=== PATIENT | female | born 1945 | race Caucasian/White ===

== ENCOUNTER 2017-09-01 06:21 | Day surgery (SDC) | payer MEDICARE ==
[2017-09-01] MEDS ORDERED: LACTATED RINGERS 1,000 ML ONE (06:37)
[2017-09-01] MEDS ORDERED: PROPOFOL 200 MG/20 ML VIAL IV ONE (07:00)
[2017-09-01 07:17] VITALS: BP 158/88; TEMP 97.4; O2SAT 97
--- NOTE | 2017-09-01 09:18 | OP ---
DATE OF PROCEDURE: 09/01/17 PREOPERATIVE DIAGNOSIS: 1. Colon cancer screen. 2. Personal history of adenomatous colonic polyp in 2011. POSTOPERATIVE DIAGNOSIS: 1. Diverticulosis of the sigmoid colon. PROCEDURE: 1. Colonoscopy. SURGEON: Karthik Jones MD. ANESTHESIA: MAC by Coleman Mendez CRNA. ESTIMATED BLOOD LOSS: None. COMPLICATIONS: None apparent. TECHNIQUE: After informed consent was obtained from the patient, the patient was taken to the Endoscopy Suite and put in the left lateral decubitus position. After adequate IV sedation was obtained, a digital rectal exam was performed which revealed decreased sphincter tone, but no intraluminal masses. The colonoscope was then passed with good visualization all the way through the colon. The bowel prep was excellent. The cecum was identified by the presence of ileocecal valve and usual landmarks. The scope was then withdrawn slowly over the next 8 minutes and a good look at the entire colonic wall was obtained. The patient had pretty extensive diverticular disease in the sigmoid region. There was no evidence of recent bleeding, no polyps or masses were found. The scope was removed. The patient tolerated the procedure well. The patient was transported to the outpatient area in good condition. It is recommended she be on a high-fiber diet. Repeat colonoscopy in 8 to 10 years is recommended. #[id number] [facility]
== END 2017-09-01 08:54 | disposition home or self-care (01) ==
LOC: AMB 06:21
PROVIDERS: ATTEND Family Medicine
DX: Z12.11 Encounter for screening for malignant neoplasm of colon (principal); K57.30 Diverticulosis of large intestine without perforation or abscess without bleeding; Z86.010 Personal history of colon polyps; K21.9 Gastro-esophageal reflux disease without esophagitis
CPT/HCPCS: 00810; G0105; J3490; J7120

== ENCOUNTER → 2018-01-24 | Outpatient (CLI) | payer MEDICARE ==
--- NOTE | 2018-01-26 09:36 | MAM ---
EXAM DESCRIPTION: 3D Screening BILATERAL : Digital Mammography. CLINICAL HISTORY: 72 years Female ANNUAL SCREENING . No complaints. Mother and sister with breast cancer. Postmenopausal. No HRT. Prior left cyst aspiration.. COMPARISON: 2-D digital diagnostic bilateral study on 09/02/2016 and 03/09/2016. Report from prior examination also reviewed. TECHNIQUE: Bilateral CC and MLO projection full-field images, 3-D tomosynthesis digital mammographic technique. Also bilateral synthesized CC/ MLO full-field images. CAD not utilized. FINDINGS: The breast parenchymal density pattern is: Scattered areas of fibroglandular density. No skin thickening or nipple retraction . Focal asymmetry in the anterior third of the right breast at the 530 clock position approximately 5 cm from the nipple. Increased density compared to the surrounding tissues and increased density compared to the prior studies. Bilateral vascular calcifications. Bilateral axillary lymph nodes. Bilateral solitary microcalcifications. No focal, stellate mass or density, focal asymmetry , and no suspicious microcalcifications left breast. IMPRESSION: BI-RADS CATEGORY: 0 - INCOMPLETE- Need additional imaging evaluation. FOLLOW-UP: Recall for additional imaging: Bilateral 3-D tomosynthesis full field LM images. 2-D spot magnification LM image of the lower inner quadrant of the anterior right breast. Targeted right breast ultrasound. Written communication concerning the IMPRESSION and Follow-up, will be mailed to the patient and referring health care provider. Electronically signed by: Jose Rodriguez MD 01/26/2018 9:34 AM CDT
== END ==
LOC: MAMMO 10:30
PROVIDERS: ATTEND Family Medicine
DX: Z12.31 Encounter for screening mammogram for malignant neoplasm of breast (principal)

== ENCOUNTER → 2018-02-01 | Outpatient (CLI) | payer MEDICARE ==
--- NOTE | 2018-02-01 16:01 | US ---
EXAM DESCRIPTION: Breast,Right: Ultrasound CLINICAL HISTORY: 72 yearsFemaleABNORMAL MAMMO. Focal asymmetry inferior aspect of the anterior right breast. COMPARISON: Digital 3-D tomosynthesis and 2-D diagnostic mammography bilateral breast on this visit. TECHNIQUE: Transcutaneous scanning of the anterior right breast utilizing two-dimensional and Doppler modes. Scanning performed by the brick wheeler and Dr. Rodriguez. FINDINGS: Scanning at the 600 clock position, 2 cm from the nipple. Irregular hypoechoic mass with microlobulated and spiculated margins and nonparallel orientation. Posterior shadowing features. Nonvascular on Doppler. Dimensions are approximately 5.6 x 5.4 mm. No definite calcifications. No distinct cyst or parenchymal edema. No skin changes. IMPRESSION: BIRADS CATEGORY: 5 HIGHLY SUSPICIOUS FINDINGS. HIGHLY SUGGESTIVE OF MALIGNANCY. Please refer to bilateral 3-D tomosynthesis and 2-D diagnostic mammographic examination and report on this visit. The FINDINGS and the FOLLOW-UP plan were reviewed in person with the patient after the examination. Written communication explaining the IMPRESSION and FOLLOW-UP will be mailed to the patient and referring care provider. CRITICAL COMMUNICATION: The critical value was discussed directly by phone with Dr. Karthik Jones at approximately 1530 hours, on February 01, 2018. Electronically signed by: Jose Rodriguez MD 02/01/2018 3:59 PM CDT
--- NOTE | 2018-02-01 16:04 | MAM ---
EXAM DESCRIPTION: 3D Diagnostic, Bilateral: Digital Mammography CLINICAL HISTORY: 72 yearsFemaleABNORMAL MAMMO . Focal asymmetry versus mass density extending clock position anterior right breast.. COMPARISON: 3-D digital screening bilateral study 01/24/2018. Targeted right breast ultrasound following this examination Report from prior examination also reviewed. . TECHNIQUE: Bilateral LM projection full-field images, 3-D tomosynthesis digital mammographic technique. Also bilateral synthesized LM full-field images. 2-D digital spot magnification images of the anterior right breast CC and LM projections. CAD on 2-D imaging. FINDINGS: The breast parenchymal density pattern is: Scattered areas of fibroglandular density. No skin thickening or nipple retraction at the 600 clock position of the anterior right breast, 3 cm from the nipple, is a irregular mass with indistinct and spiculated margins high density compared to the adjacent breast tissue. No calcifications. Dimensions are approximately 10 x 9.5 mm involving 0.77 sq cm. Ultrasound: Scanning at the 600 clock position, 2 cm from the nipple. Irregular hypoechoic mass with microlobulated and spiculated margins and nonparallel orientation. Posterior shadowing features. Nonvascular on Doppler. Dimensions are approximately 5.6 x 5.4 mm. No definite calcifications. No distinct cyst or parenchymal edema. No skin changes. IMPRESSION: BI-RADS CATEGORY: 5 HIGHLY SUSPICIOUS FINDINGS. HIGHLY SUGGESTIVE OF MALIGNANCY. Recommendation: Surgical consultation. The FINDINGS and the FOLLOW-UP plan were reviewed in person with the patient after the examination. Written communication explaining the IMPRESSION and FOLLOW-UP will be mailed to the patient and referring care provider. CRITICAL COMMUNICATION: The critical value was discussed directly by phone with Dr. Karthik Jones at approximately 1530 hours, on February 01, 2018. Electronically signed by: Jose Rodriguez MD 02/01/2018 4:01 PM CDT
== END ==
LOC: MAMMO 14:00
PROVIDERS: ATTEND Family Medicine
DX: R92.8 Other abnormal and inconclusive findings on diagnostic imaging of breast (principal)
CPT/HCPCS: 76641; 77066; G0279

== ENCOUNTER → 2018-02-07 | Outpatient (CLI) | payer MEDICARE ==
--- NOTE | 2018-02-07 09:52 | US ---
EXAM DESCRIPTION: Biopsy/Needle Guidance CLINICAL HISTORY: 72 years Female RT BREAST MASS COMPARISON: Diagnostic ultrasound of the right breast on 02/01/2018 TECHNIQUE: The procedure was performed by Dr. Vogt. Repeat ultrasound localized hypoechoic solid nodule or mass at the 600 position of the right breast 2 Cm from the nipple.. Sterile preparation. Sterile ultrasound guidance during needle passes. FINDINGS: Irregular hypoechoic mass with microlobulated and spiculated margins and nonparallel orientation. Approximately 6 x 5 mm. Posterior shadowing features. Nonvascular on Doppler, on scans before the procedure. Scans during procedure show linear echogenic needle within the mass. IMPRESSION: Successful, ultrasound-guided needle core biopsy of right breast mass. Adequate core samples were obtained. Pathology examination at remote facility, results pending. Recommendation: If pathology results are negative, consider follow-up digital diagnostic right breast mammography and ultrasound in 6 month interval. Electronically signed by: Jose Rodriguez MD 02/07/2018 9:51 AM CDT
--- NOTE | 2018-02-07 10:10 | OP ---
DATE OF PROCEDURE: 02/07/18 PREOPERATIVE DIAGNOSIS: 1. Abnormal right mammogram. POSTOPERATIVE DIAGNOSIS: 1. Abnormal right mammogram. PROCEDURE: 1. Sonographically guided needle core biopsy, right breast. SURGEON: Chele Vogt MD. HAND TACKER: None. ANESTHESIA: Local infiltration of 1% lidocaine. INDICATION: The patient is a 72-year-old female who on routine mammography had a mass noted in the inferior aspect of the right breast. Ultrasound revealed it to be solid and somewhat irregularly shaped. She was brought to the Ultrasound Suite today for sonographically guided needle core biopsy after the risks, benefits and alternatives to the procedure were discussed and accepted. FINDINGS: Five good cores were taken with the ultrasound revealing the needle within the specimen. Pathology is pending. PROCEDURE: The patient brought to the Ultrasound Suite and placed in the supine position. The right breast was examined. The lesion was identified. The breast medial to the ultrasound probe was prepped with Betadine and draped. Local infiltration of anesthesia was obtained with 1% lidocaine. The 25-gauge needle was used to infiltrate local anesthetic between the mass and the skin. When this was done, a stab wound was made with a #15 blade and then multiple cores were taken with ultrasound guidance. Hemostasis was obtained with pressure. A single suture was placed in the stab wound with 4-0 Nylon. When this was done, sterile dressing was applied. The biopsy specimens were sent for pathological evaluation. The patient tolerated the procedure well. Estimated blood loss was less than 5 mL. #[id number] [facility]
== END | disposition home or self-care (01) ==
LOC: US 07:43
PROVIDERS: ATTEND Surgery
DX: N63.13 Unspecified lump in the right breast, lower outer quadrant (principal)

== ENCOUNTER → 2018-02-13 | Outpatient (CLI) | payer MEDICARE ==
--- NOTE | 2018-02-13 18:18 | RAD ---
EXAM DESCRIPTION: Chest,2 Views CLINICAL HISTORY: 72 years Female, BREAST CANCER COMPARISON: 30 July 2015 TECHNIQUE: PA/lateral FINDINGS: There is no cardiac or pulmonary abnormality. The lungs are clear. There is no effusion. No evidence of metastatic neoplasm is detected. IMPRESSION: 1. Normal two-view chest. Electronically signed by: Darnell Carrasco MD 02/13/2018 6:17 PM CDT
== END | disposition home or self-care (01) ==
LOC: LAB.O 15:04
PROVIDERS: ATTEND Surgery
DX: C50.311 Malignant neoplasm of lower-inner quadrant of right female breast (principal)

== ENCOUNTER → 2018-02-16 | Outpatient (CLI) | payer MEDICARE ==
--- NOTE | 2018-02-20 15:23 | NM ---
EXAM DESCRIPTION: Bone Scan, Whole Body CLINICAL HISTORY: 72 years, Female, BREAST CA RADIOPHARMACEUTICAL: 28.8 mCi technetium 99m MDP was administered intravenously. Delayed three-hour images of the skeletal system were obtained. FINDINGS: Anterior and posterior whole body images of the skeletal system were obtained. Frontal view shows mildly increased activity in the region of the nose or ethmoid sinuses which may be inflammatory. Similar mild increase activity in the region of the right maxillary sinus. Mild increased activity at the left sternoclavicular joint is probably degenerative. Mild increased activity in the feet is consistent with degenerative arthritic changes with similar findings in the wrists and hands. There is activity in both kidneys as well as the urinary bladder. Mild curvature of the thoracal lumbar spine is seen. No focal intense abnormal activity in the bones to suggest metastatic disease. IMPRESSION: No identified evidence of osseous metastatic disease. Electronically signed by: Brant Olivo MD 02/20/2018 3:22 PM CDT
== END ==
LOC: NM 10:00
PROVIDERS: ATTEND Surgery
DX: C50.311 Malignant neoplasm of lower-inner quadrant of right female breast (principal)

== ENCOUNTER → 2018-02-20 | Outpatient (CLI) | payer MEDICARE | LOC: LAB.O 16:21 | PROVIDERS: ATTEND Surgery | DX: C50.311 Malignant neoplasm of lower-inner quadrant of right female breast (principal) ==

== ENCOUNTER 2018-04-20 07:00 | Inpatient (IN) | payer MEDICARE ==
--- NOTE | 2018-04-17 13:14 | RAD ---
EXAM DESCRIPTION: Chest,2 Views CLINICAL HISTORY: 73 years Female, PREOP COMPARISON: Radiographs of the chest dated 02/13/2018. TECHNIQUE: PA and lateral radiographs of the chest were obtained. FINDINGS: Trachea is midline.The cardiomediastinal silhouette is normal in size. The pulmonary vasculature is within normal limits.The lungs are clear with no acute consolidation.No evidence of pleural effusions.No evidence of pneumothorax. IMPRESSION: No acute cardiopulmonary process. Electronically signed by: Katina Aviles MD 04/17/2018 1:13 PM CDT
[2018-04-20] MEDS ORDERED: SODIUM CHL 0.9% 100ML MINI-BAG 100 ML IVPB ONE (07:24)
[2018-04-20] MEDS ORDERED: ceFAZolin SODIUM 1 GM VIAL ONE (07:24)
[2018-04-20] MEDS ORDERED: LACTATED RINGERS 1,000 ML ONE (07:24)
[2018-04-20] MEDS ORDERED: MIDAZOLAM INJ 2 MG/2 ML VIAL ONE (08:54)
[2018-04-20] MEDS ORDERED: fentaNYL CITRATE INJ 50 MCG/ML AMP ONE (08:54)
[2018-04-20] MEDS ORDERED: ACETAMINOPHEN IV 1000MG 100 ML ONE (09:14)
[2018-04-20] MEDS ORDERED: DEXAMETHASONE INJ 10 MG/ML VIAL IV ONE (10:00)
[2018-04-20] MEDS ORDERED: METOCLOPRAMIDE HCL INJ 10 MG/2 ML VIAL IV ONE (10:00)
[2018-04-20] MEDS ORDERED: KETOROLAC TROMETHAMINE INJ 30 MG/ML VIAL IV ONE (10:00)
[2018-04-20] MEDS ORDERED: PROPOFOL 200 MG/20 ML VIAL IV ONE (10:00)
[2018-04-20] MEDS ORDERED: raNITIdine HCL INJ 25 MG/ML VIAL IV ONE (10:00)
[2018-04-20] MEDS ORDERED: LIDOCAINE 1% 10 ML VIAL INJ ONE (10:00)
[2018-04-20] MEDS ORDERED: HYDROmorphone HCL INJ 2 MG/ML VIAL ONE (10:17)
--- NOTE | 2018-04-20 10:33 | HP ---
CHIEF COMPLAINT: Biopsy-proven carcinoma of the right breast. HISTORY OF PRESENT ILLNESS: The patient is a 73-year-old female who on routine mammography was found to have a solid mass at the 6 o'clock position in the right breast. She underwent needle core biopsy which revealed an invasive carcinoma. She had a negative metastatic workup and is admitted today for right partial mastectomy after needle localization and axillary lymph node sampling. PAST MEDICAL HISTORY: 1. Gallstones. 2. Urinary tract infections. 3. Diverticulosis. 4. Gastroesophageal reflux disease. PAST SURGICAL HISTORY: 1. Hysterectomy. 2. Cataract surgery. 3. Colonoscopy. CURRENT MEDICATIONS: She takes no prescription medications. She takes multiple vitamins and supplements. ALLERGIES: NO KNOWN DRUG ALLERGIES. FAMILY HISTORY: Positive for both breast and lung cancer. Two sisters have from breast cancer. SOCIAL HISTORY: The patient is . She does not smoke. She uses alcohol moderately. REVIEW OF SYSTEMS: Negative for chest pain, shortness of breath. Negative for change in bowel habits, weight loss, nausea, vomiting. No history of hepatitis or jaundice. She has no current urinary tract symptoms. She does have some chronic low back pain. This is chronic in nature with no acute exacerbations recently. PHYSICAL EXAMINATION: GENERAL: The patient is awake, alert, cooperative, in no acute distress. VITAL SIGNS: The patient is currently afebrile, normotensive. HEENT: Sclerae nonicteric. Mucous membranes moist. NECK: Neck and supraclavicular areas are without adenopathy. BREASTS: The left breast is without discrete mass. The right breast has a needle localization wire in the inferior aspect laterally. There is no discrete mass palpable. There is no axillary adenopathy noted. CHEST: Equal breath sounds bilaterally. HEART: Regular rate and rhythm. ABDOMEN: Soft, nontender without masses. PELVIC/RECTAL: Deferred. EXTREMITIES: Without cyanosis, clubbing or edema. LABORATORY: Preoperative laboratory reveals a clear urine. Creatinine 0.85, potassium 4.2. Liver functions within normal limits. Blood sugar 116. Hemoglobin 14.9, white count 6.7, platelet count 240,000. EKG revealed sinus rhythm. Chest x-ray was clear. ASSESSMENT: 1. Biopsy-proven carcinoma of the right breast. PLAN: She is admitted for right partial mastectomy after needle localization and axillary node sampling. #[id number] [facility]
[2018-04-20] MEDS ORDERED: MORPHINE SULFATE INJ 10 MG/ML VIAL IV PRN (11:43)
[2018-04-20] MEDS ORDERED: HYDROcodone 5MG/APAP 325MG 1 EA TAB PO PRN (11:43)
[2018-04-20] MEDS: ONDANSETRON INJ 4 MG/2 ML VIAL IV PRN ×2 (11:45→12:00)
[2018-04-20] MEDS: LACTATED RINGERS 1,000 ML IVS PRN ×2 (11:53→23:31)
[2018-04-20] MEDS ORDERED: LABETALOL INJ 5 MG/ML VIAL ONE ×2 (12:09→12:12)
[2018-04-20] MEDS ORDERED: PROMETHAZINE HCL INJ 25 MG/ML VIAL ONE (12:44)
[2018-04-20] MEDS ORDERED: SODIUM CHLORIDE 0.9% 100ML 100 ML IVPB ONE (12:44)
--- NOTE | 2018-04-20 13:37 | OP ---
DATE OF PROCEDURE: 04/20/18 PREOPERATIVE DIAGNOSIS: 1. Biopsy-proven carcinoma of the right breast. POSTOPERATIVE DIAGNOSIS: 1. Biopsy-proven carcinoma of the right breast. PROCEDURE: 1. Right partial mastectomy after needle localization and right axillary lymph node sampling. SURGEON: Chele Vogt MD. WATER FILTER CLEANER: None. ANESTHESIA: General laryngeal mask anesthesia. INDICATION: The patient is a 73-year-old female with a strong family history of breast cancer who was found to have a just over 6 mm lesion at the 6 o'clock position in her right breast. She underwent needle core biopsy which revealed basal carcinoma. Metastatic workup was negative. After oncology consultation, the patient presents today for right partial mastectomy after it is localized by Radiology, followed by a right axillary lymph node sampling. The risks, benefits and alternatives to these procedures were discussed and accepted. FINDINGS: The specimen which was marked on 4 margins with suture was identified within the specimen by Radiology of the malignancy. Pathology is pending. PROCEDURE: After the patient underwent needle localization in the Radiology Depression, she was brought to the Surgical Suite and underwent general laryngeal mask anesthesia. The patient was then prepped and draped in the usual sterile manner. At this time, a surgical time-out was taken and a curvilinear incision was fashioned under the right areola, first with the marking pen and then with the sharp knife. Dissection was carried down through the skin using electrocautery and at the medial aspect, the guidewire was identified and the specimen was dissected free circumferentially around the guidewire. The guidewire was divided and the specimen was removed and sent for evaluation by Radiology after it was marked with sutures on the medial, lateral , anterior and superior margins. The wound was then irrigated with saline. Hemostasis was noted to be adequate. It was then closed with layers with 3-0 Vicryl layers in the breast tissue and subcutaneous tissue and the skin edges were approximated with a skin stapler. A towel was placed over the field. New gloves and instruments were obtained. At this point, a curvilinear incision was fashioned in the right axilla first with a marking pen and then a sharp knife. Dissection was carried down through the skin and subcutaneous tissue. The pectoralis muscle was identified and dissection was carried deep to that and medial to that. The axillary vein was identified and the dissection was carried inferior from that. The specimen was removed using electrocautery. Hemostasis was obtained with electrocautery. The wound was irrigated with saline. A single NIEVES drain was placed through the inferior flap and was sutured in place with 3-0 Nylon skin suture. The subcutaneous tissue was then reapproximated with interrupted 3-0 Vicryl sutures. The wound was irrigated through the incision and aspirated through the drain. The skin edges were then approximated with a skin stapler. The drain was placed to closed suction. Sterile pressure dressing was applied. The patient was awakened and taken to the Recovery Room in good and stable condition. Estimated blood loss was less than 150 mL. All sponge, needle and instrument counts were correct. #[id number] [facility]
--- NOTE | 2018-04-20 14:03 | US ---
EXAM DESCRIPTION: Biopsy/Needle Guidance: ULTRASOUND. CLINICAL HISTORY: ABN MAMMO. Excision of biopsy-proven malignancy in the right breast. COMPARISON: 3-D diagnostic bilateral mammography 02/01/2018. Targeted right breast ultrasound 01/24/2018. Ultrasound-guided right breast biopsy 02/07/2018. TECHNIQUE: The procedure was explained to the patient with risks and benefits. The patient gave verbal and written consent. Repeat ultrasound localized the lesion at the 600 clock position of the right breast. 2 cm from the nipple. Sterile preparation. Sterile ultrasound guidance. 1% Xylocaine 9:1 ratio with sodium bicarbonate for skin and subdermal anesthesia. Skin incision made with # 11 scalpel blade. Medial to lateral approach. Insertion of 5 cm Safend wire needle system to the edge of the lesion. Wire advanced through the lesion. Needle was removed. Excess wire was clipped. The patient tolerated the procedure well with no immediate complications . FINDINGS: Images obtained before the procedure show the hypoechoic mass with antiparallel orientation and posterior shadowing features measuring approximately 8.5 x 8.1 mm. Images during the procedure show the needle wire adjacent to the mass and the wire and hook advancing through the mass and positioned slightly lateral to the mass. IMPRESSION: Successful, ultrasound-guided needle wire localization of right breast mass prior to excision. Please refer to digital mammographic examination of excisional biopsy specimen and report. Procedure results discussed with Dr. Vogt by phone at approximately 0900 hours on April 20, 2018. Electronically signed by: Jose Rodriguez MD 04/20/2018 2:02 PM CDT
--- NOTE | 2018-04-20 14:09 | MAM ---
EXAM DESCRIPTION: Breast Surgical Specimen: Digital mammography. CLINICAL HISTORY: 73 yearsFemalePOST SX COMPARISON: Ultrasound guided, needle wire localization of right breast mass today. 3-D Tea synthesis diagnostic mammography of the right breast 02/01/2018. TECHNIQUE: Digital mammography of right breast biopsy specimen. FINDINGS: The right breast biopsy specimen contains the mass seen on today's ultrasound images and also seen on images from previous digital mammogram in January 2018. The distal wire and hook are also seen within the specimen. IMPRESSION: Digital mammography of Right Breast surgical specimen demonstrates that the specimen contains the mass of interest, and the localization wire. Electronically signed by: Jose Rodriguez MD 04/20/2018 2:08 PM CDT
[2018-04-20] MEDS ORDERED: ONDANSETRON INJ 4 MG/2 ML VIAL IV PRN (14:35)
--- NOTE | 2018-04-20 21:02 | CONS ---
DATE OF CONSULTATION: 04/20/18 SUPERVISING PHYSICIAN: Adilson Reddy M.D. CHIEF COMPLAINT: Biopsy proven carcinoma of the right breast status post right partial mastectomy per Dr. Chele Vogt, general surgeon. HISTORY OF PRESENT ILLNESS: This is a 73 year-old female patient who on routine mammography was found to have a solid mass in her right breast. She underwent a needle core biopsy that revealed an invasive carcinoma. She had a negative metastatic workup and was admitted to the hospital today for right partial mastectomy after needle localization and axillary lymph node sampling. Intraoperatively she had some PVCs and PACs on the ux ui designer. She has no known cardiac history. She also has no known family cardiac history. I was consulted and I am seeing the patient postoperatively at the request of Dr. Vogt regarding her abnormal EKG. PAST MEDICAL HISTORY: 1. Gallstones. 2. Diverticulosis. 3. Gastroesophageal reflux disease. PAST SURGICAL HISTORY: 1. Hysterectomy. 2. Cataract removal. OUTPATIENT MEDICATIONS: None. ALLERGIES: NO KNOWN DRUG ALLERGIES. FAMILY HISTORY: Positive for lung cancer and breast cancer. SOCIAL HISTORY: She lives in [place]. She is . She has 4 children. She has never smoked but she drinks 2 to 3 drinks approximately 2 to 3 times per week. Typically she consumes wine. There is no history of any illicit drug use. REVIEW OF SYSTEMS: GENERAL: She denies weight changes, fever or fatigue. HEENT: Negative for sinus symptoms, ear pain, vision changes or sore throat. RESPIRATORY: Negative for coughing, wheezing or shortness of breath. CARDIAC: Negative for chest pain or palpitations. GASTROINTESTINAL: Negative for nausea, vomiting, diarrhea or constipation. GENITOURINARY: Negative for hematuria, polyuria or dysuria. SKIN: Negative for lesions or rashes. MUSCULOSKELETAL: Negative for arthralgias or myalgias. NEUROLOGIC: Negative for seizures, headaches or dizziness. PHYSICAL EXAMINATION: VITAL SIGNS: She is afebrile, heart rate 66, blood pressure 129/72, respiratory rate 16, O2 sat is 99% on 4 liters nasal cannula. GENERAL: This is a 73 year-old female patient who is lying in her hospital bed. She is sleepy. She is in no acute distress. HEENT: Normocephalic and atraumatic. Pupils are equal and reactive. Oropharynx is clear. NECK: Supple without mass. RESPIRATORY: Essentially clear to auscultation bilaterally. CHEST: There is equal rise and fall of the chest with inspiration and expiration. She does have a cotton surgical binding wrapped around her chest. It is dry and intact. CARDIOVASCULAR: Regular rate and rhythm with a rare PAC noted on the ux ui designer. GASTROINTESTINAL: Abdomen is soft, nondistended, non-tender. Bowel sounds are slightly hypoactive. EXTREMITIES: No cyanosis, clubbing or edema. NEUROLOGIC: She is asleep but she awakens easily. She is sleepy but she answers simple questions appropriately. LABORATORY: CBC is basically within normal limits. CMP is basically within normal limits. Anion gap is slightly low at 10.2 and her random glucose is slightly high at 116. Negative UA. Preoperative chest x-ray shows no acute cardiopulmonary processes. All other labs and films have been reviewed via the EMR. IMPRESSION: 1. Biopsy proven carcinoma of the right breast status post right partial mastectomy per Dr. Chele Vogt, general surgeon, postoperative day zero. 2. PVCs and PACs on EKG intraoperatively with no chronic cardiac history;. 3. Gastroesophageal reflux disease. PLAN: I have placed the patient on the ux ui designer. We will monitor her heart rate as well as any abnormal activity on her EKG. At this point, an occasional PAC. She may warrant a workup by , her primary care physician, after discharge. Her vital signs have remained stable. Her operative issues will be per Dr. Vogt. We will monitor her closely and follow as needed. Dr. Reddy is the collaborating physician available for consultation. #[id number] [facility]
[2018-04-21 05:32] VITALS: TEMP 97.6
[2018-04-21] MEDS ORDERED: PANTOPRAZOLE SODIUM TAB 40 MG PO SCH (06:30)
[2018-04-21] MEDS ORDERED: SODIUM CHLORIDE 0.9% (FLUSH) 10 ML SYG IV PRN (08:39)
[2018-04-21] MEDS ORDERED: ENOXAPARIN SODIUM 40 MG/0.4 ML SYG SUBCU SCH (09:00)
[2018-04-21] MEDS ORDERED: SODIUM CHLORIDE 0.9% (FLUSH) 10 ML SYG IV SCH (11:00)
--- NOTE | 2018-04-21 11:16 | PN ---
SUPERVISING PHYSICIAN: Adilson Reddy MD DATE: 04/21/18 SUBJECTIVE: The patient is sitting up in a chair in her hospital room, much more alert today than yesterday. She denies any chest pain, nausea, vomiting or diarrhea. When inquiring about her family history, she did say that her mother had an irregular heart rate, but she smoked for many years. We discussed her irregular heart rhythm in the Operating Room and she agreed to see for cardiac workup. OBJECTIVE: VITAL SIGNS: Afebrile. Heart rate 53 to 63. Blood pressure 125/ 67. Respiratory rate 16. O2 saturation 99%. RESPIRATORY: Essentially clear to auscultation bilaterally. 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 She has rare premature atrial contractions. NEUROLOGIC: Awake, alert and oriented times three. LABORATORY: WBCs 10.6, hemoglobin 13.9, hematocrit 41.7. All other labs and films have been reviewed via the EMR. ASSESSMENT: 1. Biopsy-proven carcinoma of the right breast status post right partial mastectomy per Dr. Chele Vogt, general surgeon, postoperative day #1. 2. Premature ventricular contractions and premature atrial contractions on EKG intraoperatively with no chronic cardiac history. 3. Gastroesophageal reflux disease. 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 There have been no PVCs postoperatively. Her operative issues will be per Dr. Vogt, but on discharge, the patient will need to have a followup with her primary care physician, , for cardiac workup. We will continue to monitor the patient closely and follow as needed. Dr. Reddy is the collaborating physician and available for consultation. #[id number] [facility]
[2018-04-21 13:27] VITALS: BP 124/72; O2SAT 97
--- NOTE | 2018-04-21 14:01 | DS ---
FINAL DIAGNOSIS: 1. Carcinoma of the right breast. SURGICAL PROCEDURE: 1. Right partial mastectomy and axillary node sampling on 04/20/18. HISTORY OF PRESENT ILLNESS: The patient is a 73-year-old female who on routine mammography was found to have a solid mass at the 6 o'clock position in the right breast. She underwent needle core biopsy which revealed an invasive carcinoma. She had a negative metastatic workup and is admitted today for right partial mastectomy after needle localization and axillary lymph node sampling. LABORATORY: On the date of discharge, the patient's hemoglobin was 13.9 with a white count of 10,000, platelet count 201,000, 91% neutrophils. Pathology report is pending at the time of discharge. HOSPITAL COURSE: The patient was admitted from the Ambulatory Unit to the Operating Room and then from the Recovery Room to the Floor on 04/20/18. The patient was somewhat sedated by some Phenergan last night, however, woke up this morning felling very well, was tolerating clear liquids and was advanced to a regular diet which she ate well for lunch. Her NIEVES drainage has been moderate and is serosanguineous without any noted clots so far. She is taking no pain medications, has no nausea and has remained afebrile. Her Castelan catheter has just been removed, which she tolerated well. At this time, the patient is discharged home. CONDITION ON DISCHARGE: Excellent. PROGNOSIS: Pending pathology report. DISPOSITION: The patient is to followup with and has a scheduled appointment will call Tuesday to see me Tuesday to do a dressing change in the office. She is discharged with no new medications, but is instructed to take all her home vitamins, etc. She is told she can do no exercise or lifting with her right shoulder, but she can use her right hand, wrist and elbow. She has no other restrictions to activity other than she has to keep her dressing dry. She is to empty, measure and recharge the NIEVES grenade at least 4 times a day and keep a record that she will bring with her to my office. She also knows if she has problems with fever, chills, increase pain, swelling, etc., to call me prior to the appointed visit. #[id number] [facility]ENTER[facility]
== END 2018-04-21 13:25 | disposition home or self-care (01) | DRG 581 ==
LOC: AMB 07:00 → MS 14:07
PROVIDERS: ADMIT Surgery; ATTEND Surgery
PROC: 07B50ZX Excision of Right Axillary Lymphatic, Open Approach, Diagnostic (ICD-10-PCS; 2018-04-20)
PROC: 0HBT0ZZ Excision of Right Breast, Open Approach (ICD-10-PCS; principal; 2018-04-20 09:01)
DX: C50.911 Malignant neoplasm of unspecified site of right female breast (principal); K21.9 Gastro-esophageal reflux disease without esophagitis; K57.30 Diverticulosis of large intestine without perforation or abscess without bleeding; Z87.440 Personal history of urinary (tract) infections; Z80.1 Family history of malignant neoplasm of trachea, bronchus and lung; Z80.3 Family history of malignant neoplasm of breast

== ENCOUNTER 2018-04-22 11:49 | Emergency (ER) | payer MEDICARE ==
[2018-04-22 12:27] VITALS: BP 186/80; TEMP 98.6; O2SAT 97
--- NOTE | 2018-04-22 12:43 | ED.PDOC ---
History of Present Illness - General Chief Complaint: Post Op Problems Stated Complaint: NIEVES DRAIN REMOVED Time Seen by Provider: 04/22/18 12:41 - History of Present Illness Allergies/Adverse Reactions: Allergies NO KNOWN ALLERGY Allergy (Verified 07/30/15 14:35) Home Medications: Ambulatory Orders Cholecalciferol [Vitamin D] 1,000 unit PO DAILY 08/03/17 Cranberry (Vaccinium Macrocarp [Cranberry Concentrate] 500 mg PO DAILY 08/03/17 Norlina-3 Fatty Acids [Fish Oil] 1 cap PO DAILY 08/03/17 Multiple Vitamins W/ Minerals [Vitamins To Go Men] 1 mis PO DAILY 08/30/17 Multiple Vitamin [Ocuvite] 1 tab PO DAILY 04/18/18 Past Medical History (General) - Patient Medical History Hx Seizures: No Hx Stroke: No Hx Asthma: No Hx of COPD: No Hx Congestive Heart Failure: No Hx Pacemaker: No Hx Hypertension: No Hx Diabetes: No Hx MRSA: No Surgical History: cholecystectomy, Hysterectomy, other - Vaccination History Hx Tetanus, Diphtheria Vaccination: No Hx Influenza Vaccination: No Hx Pneumococcal Vaccination: No - Social History Hx Tobacco Use: No Hx Alcohol Use: No Hx Substance Use: No Hx Substance Use Treatment: No Hx Depression: No Hx Emotional Abuse: No Family Medical History - Family History Mother Family History: No Known Departure - Departure Clinical Impression: Patient left without being seen Time of Disposition: 12:43 Disposition: Discharge to Home or Self Care Condition: Fair Departure Forms: Patient Portal Self Enrollment Referrals: Karthik Jones MD [Primary Care Provider] - 1-2 Weeks Home Medications: Ambulatory Orders Cholecalciferol [Vitamin D] 1,000 unit PO DAILY 08/03/17 Cranberry (Vaccinium Macrocarp [Cranberry Concentrate] 500 mg PO DAILY 08/03/17 Norlina-3 Fatty Acids [Fish Oil] 1 cap PO DAILY 08/03/17 Multiple Vitamins W/ Minerals [Vitamins To Go Men] 1 mis PO DAILY 08/30/17 Multiple Vitamin [Ocuvite] 1 tab PO DAILY 04/18/18
== END 2018-04-22 12:25 | disposition home or self-care (01) ==
LOC: ER 11:49
DX: Z51.89 Encounter for other specified aftercare (principal); Z53.21 Procedure and treatment not carried out due to patient leaving prior to being seen by health care provider

== ENCOUNTER → 2019-02-27 | Outpatient (CLI) | payer MEDICARE ==
--- NOTE | 2019-03-01 17:14 | MAM ---
EXAM DESCRIPTION: 3D Screening BILATERAL : Digital Mammography. CLINICAL HISTORY: 73 years Female CA RT BREAST C50.311 . Partial history of right breast cancer. Lumpectomy and radiation therapy. Sister with breast cancer.. Lifetime risk of developing breast cancer (Tyrer-Cuzick model)(%): Not calculated due to personal history of breast cancer. COMPARISON: Screening bilateral digital breast tomosynthesis 01/24/2018. Ultrasound-guided needle core biopsy right breast 02/07/2018. Ultrasound-guided wire localization right breast for open biopsy 04/20/2018. Digital 2-D Mammography of right breast biopsy specimen, 04/20/2018.. TECHNIQUE: Bilateral CC and MLO projection full-field images, digital tomosynthesis mammographic technique. Bilateral digital 2-D full-field MLO images. CAD not available for tomosynthesis or 2-D images. FINDINGS: The breast parenchymal density pattern is: Scattered areas of fibroglandular density. No skin thickening or nipple retraction left breast. Nipple retraction and skin thickening anterior right breast with increased parenchymal density anterior half of the right breast particularly in the region of prior biopsy and radiation therapy. Solitary microcalcification left breast. New, large eggshell calcification posterior third right breast. Small vascular calcifications. No new focal, stellate mass or density, focal asymmetry , and no suspicious microcalcifications left breast. IMPRESSION: BI-RADS CATEGORY: 0 - INCOMPLETE- Need additional imaging evaluation. FOLLOW-UP: Recall for additional imaging: Targeted right breast ultrasound of the region of prior tumor resection and radiation therapy, anterior lower inner quadrant.. Written communication concerning the IMPRESSION and Follow-up, will be mailed to the patient and referring health care provider. Electronically signed by: Jose Rodriguez MD 03/01/2019 5:12 PM CDT
== END ==
LOC: RAD 10:31
PROVIDERS: ATTEND Surgery
DX: Z12.31 Encounter for screening mammogram for malignant neoplasm of breast (principal); Z85.3 Personal history of malignant neoplasm of breast

== ENCOUNTER → 2019-03-20 | Outpatient (CLI) | payer MEDICARE ==
--- NOTE | 2019-03-20 16:18 | US ---
EXAM DESCRIPTION: Breast,Right: Ultrasound CLINICAL HISTORY: 73 yearsFemaleABNORMAL MAMMOGRAM. Focal asymmetry in the region of the prior biopsy and radiation therapy. COMPARISON: Bilateral screening digital breast tomosynthesis 02/27/2019. TECHNIQUE: Transcutaneous scanning of the right breast utilizing arellano-scale mode. Scanning performed by the municipal services manager and Dr. Rodriguez. FINDINGS: Scanning of the right breast at the 5:00 to 6:00 sectors. Emphasis on the region from the nipple to 4 cm posteriorly. No dominant solid mass or distinct cyst. No parenchymal edema or large calcification.. IMPRESSION: Benign exam. BIRAD CATEGORY: 2 BENIGN FINDINGS. RECOMMENDATIONS: FOLLOW UP: Routine digital bilateral mammographic screening, one year interval from February 2019. Written communication explaining the IMPRESSION and follow-up, will be mailed to the patient and referring health care provider. The FINDINGS and the FOLLOW-UP plan were reviewed in person with the patient after the examination. According to the [employer], yearly mammograms are recommended starting at age 40 and continuing as long as a woman is in good health. Any breast change noted on a breast self-exam should be reported promptly to the patient's healthcare provider. Breast MRI is recommended for women with an approximately 20-25% or greater lifetime risk of breast cancer, including women with a strong family history of breast or ovarian cancer and women who have been treated for Hodgkin's disease. A negative mammographic report should not delay tissue diagnosis in patients with significant clinical history or physical findings. Extremely dense breast tissue limits the sensitivity of digital mammography. Electronically signed by: Jose Rodriguez MD 03/20/2019 4:16 PM CDT
== END ==
LOC: MAMMO 07:55
PROVIDERS: ATTEND Family Medicine
DX: R92.8 Other abnormal and inconclusive findings on diagnostic imaging of breast (principal)

== ENCOUNTER 2020-02-04 13:39 | Emergency (ER) | payer MEDICARE, OTHER ==
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
[2020-02-04 16:06] VITALS: BP 158/93; TEMP 98.6; O2SAT 97
== END 2020-02-04 15:48 | disposition home or self-care (01) ==
LOC: ER 13:39
DX: S16.1XXA Strain of muscle, fascia and tendon at neck level, initial encounter (principal); S70.10XA Contusion of unspecified thigh, initial encounter; M25.511 Pain in right shoulder; I51.7 Cardiomegaly; M16.10 Unilateral primary osteoarthritis, unspecified hip; M19.011 Primary osteoarthritis, right shoulder; V49.88XA Car occupant (driver) (passenger) injured in other specified transport accidents, initial encounter; Y92.410 Unspecified street and highway as the place of occurrence of the external cause

== ENCOUNTER → 2020-03-25 | Outpatient (CLI) | payer MEDICARE ==
--- NOTE | 2020-03-26 18:39 | MAM ---
EXAM DESCRIPTION: 3D Screening BILATERAL : Digital Mammography. CLINICAL HISTORY: 74 years Female ANNUAL SCREENING . No complaints. Right Breast cancer with lumpectomy and radiation therapy. Mother with breast cancer and female sibling at age 50. Menarche age 12. Childbirth age 17. Menopause age unknown. No HRT... Lifetime risk of developing breast cancer (Tyrer-Cuzick model)(%): Not calculated due to personal history of breast cancer. COMPARISON: Bilateral screening digital breast tomosynthesis February 2019. Ultrasound-guided breast mass localization April 2018. TECHNIQUE: Bilateral CC and MLO projection full-field images, digital tomosynthesis mammographic technique. Bilateral digital 2-D full-field MLO images. CAD available for 2-D images. FINDINGS: The breast parenchymal density pattern is: Scattered areas of fibroglandular density. Left breast no skin thickening or nipple retraction. Retroareolar architectural distortion right breast secondary to biopsy of right breast malignancy and treatment. Skin density in the biopsy site has decreased since the prior study. Skin thickening anterior right breast bilateral skin mole markers. Vascular calcifications. Fat necrosis mid right breast. Bilateral solitary microcalcifications. Left axillary lymph nodes. No new focal, stellate mass or density, focal asymmetry , and no suspicious microcalcifications bilaterally. Stable left breast mammograms compared to prior study. IMPRESSION: Benign exam. BIRAD CATEGORY: 2 BENIGN FINDINGS. RECOMMENDATIONS: FOLLOW UP: Routine digital bilateral mammographic screening, one year interval from March 2020. Written communication explaining the IMPRESSION and follow-up, will be mailed to the patient and referring health care provider. According to the [employer], yearly mammograms are recommended starting at age 40 and continuing as long as a woman is in good health. Any breast change noted on a breast self-exam should be reported promptly to the patient's healthcare provider. Breast MRI is recommended for women with an approximately 20-25% or greater lifetime risk of breast cancer, including women with a strong family history of breast or ovarian cancer and women who have been treated for Hodgkin's disease. A negative mammographic report should not delay tissue diagnosis in patients with significant clinical history or physical findings. Extremely dense breast tissue limits the sensitivity of digital mammography. Electronically signed by: Jose Rodriguez MD 03/26/2020 6:35 PM CDT
== END ==
LOC: MAMMO 11:00
PROVIDERS: ATTEND Family Medicine
DX: Z12.31 Encounter for screening mammogram for malignant neoplasm of breast (principal)